=== PATIENT | female | born 1990 | race Caucasian/White ===

== ENCOUNTER 2019-07-03 09:52 | Emergency (ER) | payer MEDICAID ==
[~2019-07-03] VITALS: Ht 167.6 cm; Wt 59.1 kg
--- NOTE | 2019-07-03 10:05 | NUR ---
PT PRESENTED TO ED D/T DOG BITE TO LEFT LOWER LEG. PT STATES DOG WAS IN BOYFRIENDS BACK YARD AND RAN UP AND BIT HER. PT IS UNSURE IF DOG HAS UP TO DATE VACCINATIONS.
--- NOTE | 2019-07-03 10:08 | NUR ---
RESIDENT AT BEDSIDE EVALUATING PT.
--- NOTE | 2019-07-03 10:20 | NUR ---
AT BEDSIDE EVALUATING PT.
[2019-07-03] MEDS ORDERED: DIPHTHERIA-TETANUS ADULT 0.5ML IM-VACC ONE (10:30)
[2019-07-03] MEDS ORDERED: ONDANSETRON 2MG/ML, 2ML IVPush ONE (10:30)
[2019-07-03] MEDS ORDERED: AMPICILLIN/SULBACTAM 3 GM in SODIUM CHLORIDE 0.9% 100 ML IV ONE (10:30)
[2019-07-03] MEDS ORDERED: SODIUM CHLORIDE FLUSH 10ML SYR IVF ONE (10:30)
[2019-07-03] MEDS ORDERED: LIDOCAINE 1%, 50ML INFIL ONE (10:30)
[2019-07-03] MEDS ORDERED: ONDANSETRON 2MG/ML, 2ML ONE (10:35)
[2019-07-03] MEDS ORDERED: LIDOCAINE-MPF 1%, 2ML ONE (10:35)
[2019-07-03] MEDS ORDERED: DIPH,PERTUSS(ACELL),TET VAC/PF 0.5 ML IM-VACC ONE (10:36)
[2019-07-03] MEDS ORDERED: MORPHINE SULFATE 4 MG/ML, 1ML ONE ×2 (10:36→11:18)
--- NOTE | 2019-07-03 10:38 | NUR ---
PT IN RADIOLOGY.
[2019-07-03] MEDS: MORPHINE SULFATE 4 MG/ML, 1ML IVPush PRN ×2 (10:51→11:21)
[2019-07-03] MEDS ORDERED: LIDOCAINE-MPF 1%, 5ML ONE (10:57)
--- NOTE | 2019-07-03 11:06 | NUR ---
RN STOPPED ABX DUE TO NOTICING HIVES OF LEFT UE. PT DENIES ANY SOB OR PAIN. RESIDENT AT BEDSIDE EVALUATING PT.
[2019-07-03] MEDS ORDERED: DIPHENHYDRAMINE 50 MG/ML, 1ML ONE (11:11)
[2019-07-03] MEDS ORDERED: CEFTRIAXONE PMX 2GM/50ML 50 ML ONE (11:18)
[2019-07-03] MEDS ORDERED: CEFTRIAXONE PMX 2GM/50ML 50 ML IV SCH (11:30)
[2019-07-03] MEDS ORDERED: DIPHENHYDRAMINE 50 MG/ML, 1ML IVPush ONE (11:30)
[2019-07-03] MEDS ORDERED: SULFAMETH./TRIMETHOPRIM DS 800MG/160MG TABLET ONE (11:36)
[2019-07-03] MEDS ORDERED: NEOSPORIN OINT. PKT 1 PACKET ONE (11:38)
--- NOTE | 2019-07-03 11:39 | NUR ---
PT RESTING COMFORTABLY ON GURNEY. NO ALLERGIC RXN NOTED TO [place] 2GM PER EMAR. PT'S BOYFRIEND KELSEA WANTS UPDATES. OKAY BY PT TO UPDATE BF.
--- NOTE | 2019-07-03 11:48 | NUR ---
RESIDENT AT BEDSIDE.
--- NOTE | 2019-07-03 12:06 | NUR ---
RN APPLIED DRESSING TO PATIENTS LEFT LOWER LEG PER MD ORDERS. PIV WAS REMOVED WITH TIP INTACT. PT TBDC. AWAITING PAPERWORK.
[2019-07-03 12:47] VITALS: BP 143/92
== END 2019-07-03 12:48 | disposition home or self-care (01) ==
LOC: ED 10:18
DX: S81.812A Laceration without foreign body, left lower leg, initial encounter (principal); S91.052A Open bite, left ankle, initial encounter; F17.210 Nicotine dependence, cigarettes, uncomplicated; W54.0XXA Bitten by dog, initial encounter; Y93.89 Activity, other specified; Y92.89 Other specified places as the place of occurrence of the external cause; Y99.8 Other external cause status
CPT/HCPCS: 12032; 73590; 90471; 90714; 96365; 96367; 96375; 99285; J0295; J0696; J1200; J2270; J2405; J3490; 12042

== ENCOUNTER 2019-07-16 17:10 | Emergency (ER) | payer MEDICAID ==
[~2019-07-16] VITALS: Ht 167.6 cm; Wt 58.4 kg
[2019-07-16 17:58] LABS: BASOPHILS # (AUTO) 0.02 x10^3/uL (0-0.1); BASOPHILS % (AUTO) 0 % (0-1); EOSINOPHILS # (AUTO) 0.08 x10^3/uL (0-0.4); EOSINOPHILS % (AUTO) 1 % (1-7); LYMPHOCYTES # (AUTO) 2.03 x10^3/uL (1-3.4); LYMPHOCYTES % (AUTO) 33 % (22-44); MD NO; MEAN CORPUSCULAR HEMOGLOBIN 29.2 pg (27.0-34.8); MEAN CORPUSCULAR HGB CONC 33.7 g/dL (32.4-35.8); MEAN CORPUSCULAR VOLUME 86.5 fL (80-100); MEAN PLATELET VOLUME 8.6 fL (7.4-10.4); MONOCYTES # (AUTO) 0.24 x10^3/uL (0.2-0.8); MONOCYTES % (AUTO) 4 % (2-9); NEUTROPHILS # (AUTO) 3.76 x10^3/uL (1.8-6.8); NEUTROPHILS % (AUTO) 61 % (42-75); PLATELET COUNT 352 x10^3/uL (130-400); RED BLOOD COUNT 5.13 x10^6/uL (3.82-5.3); RED CELL DISTRIBUTION WIDTH 13.5 % (9.6-15.2)
[2019-07-16 18:08] LABS: ANION GAP 8 mmol/L (5-15); CHLORIDE 108 mmol/L (98-107); CREATININE 0.72 mg/dL (0.55-1.02)
[2019-07-16] MEDS ORDERED: SODIUM CHLORIDE FLUSH 10ML SYR IVF ONE (18:30)
--- NOTE | 2019-07-16 19:29 | NUR ---
AIR QUALITY SPECIALIST: PT TO ROOM FROM LOBBY
--- NOTE | 2019-07-16 19:55 | NUR ---
PT HERE FOR WORSENING DOG BITE WOUNDS. BIT BY BOYFRIEND'S PITBULL. WS SEEN IN THIS ED AFTER INCIDENT. SUTURE SITES X2 AND SCABBED AREAS X2 TO LT INNER LESCABBED PUNCTURE WOUNDS X2 TO LT OUTER LE. LIMITED ROM ANKLE. PT REPORTS NUMBNESS TO LE. NO PAIN MED TAKEN TODAY. TOOK AMOXICILLIN TODAY - ONE DOSE. TDAP UTD.
[2019-07-16] MEDS ORDERED: AMOX1TAB12 PO (19:57)
[2019-07-16 20:36] VITALS: BP 156/106
--- NOTE | 2019-07-16 20:40 | NUR ---
WRITTEN DC INSTRUCTIONS DISCUSSED W/ PT; UNDERSTANDING VERBALIZED. AXEL MYERS BS FOR SUTURE REMOVAL.
== END 2019-07-16 20:44 | disposition home or self-care (01) ==
LOC: ED 18:10
DX: S91.052A Open bite, left ankle, initial encounter (principal); L03.116 Cellulitis of left lower limb; Z72.9 Problem related to lifestyle, unspecified; F17.210 Nicotine dependence, cigarettes, uncomplicated; W54.0XXA Bitten by dog, initial encounter; Y93.89 Activity, other specified; Y92.410 Unspecified street and highway as the place of occurrence of the external cause; Y99.8 Other external cause status
CPT/HCPCS: 36415; 80048; 82040; 83605; 85025; 87040; 99283

== ENCOUNTER 2019-12-10 19:24 | Emergency (ER) | payer MEDICAID ==
[~2019-12-10] VITALS: Ht 167.6 cm; Wt 54.7 kg
[~2019-12-10 19:24] MED LIST: AMOX1TAB12 PO
[2019-12-10] MEDS ORDERED: KETOROLAC 30 MG/1 ML ONE (19:51)
--- NOTE | 2019-12-10 19:57 | NUR ---
PT MEDICATED PER ORDERS. ERP AND ER PA AT BS TO PUT TAPE STRIPS ON PT'S CHEST FOR COMFORT.
[2019-12-10] MEDS ORDERED: KETOROLAC 30 MG/1 ML IM ONE (20:00)
[2019-12-10 20:21] VITALS: BP 127/96
--- NOTE | 2019-12-10 20:23 | NUR ---
INCENTIVE SPIROMETER PROVIDED TO PT AND INSTRUCTED ON USE. D/C INSTRUCTIONS, MEDS & F/U APPT RV'WD WITH PT, SHE VERBALIZES UNDERSTANDING. PT AMBULATED OUT OF ED WITHOUT DIFFICULTY.
== END 2019-12-10 20:22 | disposition home or self-care (01) ==
LOC: ED 20:15
DX: S22.42XA Multiple fractures of ribs, left side, initial encounter for closed fracture (principal); W01.0XXA Fall on same level from slipping, tripping and stumbling without subsequent striking against object, initial encounter; Y93.89 Activity, other specified; Y92.89 Other specified places as the place of occurrence of the external cause; Y99.8 Other external cause status
CPT/HCPCS: 96372; 99283; J1885